=== PATIENT | female | born 1955 | race Caucasian/White ===

== ENCOUNTER 2022-03-15 12:39 | Emergency (ER) | payer SELFPAY ==
[2022-03-15] MEDS ORDERED: ENDOCET 5-3251 EACH PO (16:21)
== END 2022-03-15 16:52 | disposition home or self-care (01) ==
LOC: ER1 12:39
DX: S42.251A Displaced fracture of greater tuberosity of right humerus, initial encounter for closed fracture (principal); S80.01XA Contusion of right knee, initial encounter; S00.83XA Contusion of other part of head, initial encounter; S60.222A Contusion of left hand, initial encounter; E11.9 Type 2 diabetes mellitus without complications; I10 Essential (primary) hypertension; Z88.6 Allergy status to analgesic agent; Z88.8 Allergy status to other drugs, medicaments and biological substances; W01.10XA Fall on same level from slipping, tripping and stumbling with subsequent striking against unspecified object, initial encounter; Y92.89 Other specified places as the place of occurrence of the external cause; Y99.0 Civilian activity done for income or pay
CPT/HCPCS: 71045; 73030; 73080; 73130; 99283